=== PATIENT | female | born 1955 | race Caucasian/White ===

== ENCOUNTER 2020-02-01 23:52 | Emergency (ER) | payer OTHER, SELFPAY ==
--- NOTE | ~2020-02-01 | XR_ITS ---
EXAMINATION: XR wrist LT min 3V DATE: 02/02/2020 00:21 INDICATION: Left wrist pain, initial encounter TECHNIQUE: Posteroanterior, ulnar deviation, oblique, and lateral views of the left wrist were obtain ed. COMPARISON: None available FINDINGS: There is cortical irregularity and buckling of the dorsal lateral cortex of the distal radi us. Alignment at the wrist is normal. There is mild osteoarthritis of the triscaphe and first carpome tacarpal joints. Wrist soft tissue swelling is noted. IMPRESSION: 1. Acute fracture of the left distal radius with surrounding soft tissue swelling. Reviewed, dictated and finalized at location A. IMPRESSION: 1. Acute fracture of the left distal radius with surrounding soft tissue yamileth ewing.
[2020-02-01 23:56] VITALS: BP 153/85; PULSE 81; RESP 16; TEMP 36.8; O2SAT 100
--- NOTE | 2020-02-01 23:57 | ED.FALL ---
HPI - Fall General Chief Complaint: Fall Stated Complaint: Left arm injury Time Seen by Provider: 02/01/20 23:56 Source: patient and family Mode of arrival: ambulatory Limitations: no limitations History of Present Illness HPI Narrative: 64-year-old woman comes in today complaining of pain and swelling in her left wrist that started approximately 7:00 a.m. this evening when she fell backwards on her outstretched left hand. She states that she also landed on her backside and she has some mild tenderness there but it is mild in getting better. She states she has difficulty holding things in her left hand but no numbness or tingling or weakness. She denies prior wrist injuries or fractures. She took some ibuprofen prior to arrival. She denies head injury. complaint: fall Onset (ago): hour(s) (4) Fall from: standing Fall witnessed: yes, by family Place fall occurred: home Loss of consciousness: none Prolonged down time: no Symptoms prior to fall: none Context: tripped/slipped Location of injury - extremities: Left: forearm Severity: moderate Quality: sharp Associated symptoms (after fall): denies Related Data Home Medications Medication Instructions Recorded Confirmed potassium chloride 10 meq PO DAILY 02/02/20 02/02/20 pravastatin 40 mg PO DAILY 02/02/20 02/02/20 Allergies Allergy/AdvReac Type Severity Reaction Status Date / Time levofloxacin Allergy Mild TINGLING Verified 02/02/20 00:04 SENSATION MOUTH AND FACE Review of Systems Constitutional: Constitutional: Denies chills, Denies fever(s) and Denies weakness ENT: Denies vertigo and Denies epistaxis Cardiovascular: Cardiovascular: Denies chest pain and Denies radiating jaw, neck or arm pain Respiratory: Respiratory: Denies cough, Denies dyspnea and Denies wheezing Musculoskeletal: Musculoskeletal: Reports as per HPI, Reports back pain, Reports arthralgias and Reports joint swelling Integumentary/Breasts: Skin/Breast: Denies pruritus, Denies erythema and Denies rash Neurologic: Denies dizziness and Denies syncope Hematologic/Lymphatic: Hematologic/Lymphatic: Denies easy bleeding and Denies easy bruising Allergic/Immunologic: Allergic/Immunologic: Denies lip swelling and Denies wheezing PMFSH Past Medical History Medical History Dyslipidemia Surgical History Surgical History S/P AVR Status post hysterectomy Social History Social History Smoking status: Current some day smoker Tobacco type: e-cigarettes/vaping Alcohol intake: never Substance use: never Living arrangements: with family Exam Const: General: healthy appearing and alert Orientation/consciousness: patient oriented x3 Limitations: no limitations Other: mild acute distress HENMT: Face and sinus: normal facial exam Eyes: Conjunctivae: conjunctivae normal Pupils: Equal, round and reactive pupils present EOM: EOMs intact bilaterally Resp: Effort & Inspection: normal respiratory effort and not labored Auscultation: clear to auscultation bilaterally, no rales, no rhonchi and no wheezes Cardio: Rate: regular rate Rhythm: regular rhythm Heart sounds: no murmurs Skin: General skin exam: normal color, no jaundice and no pallor Rashes: no rashes Neuro: General: patient oriented x3, moves all extremities, no focal motor deficits and CN's II-XI intact bilaterally Speech: normal speech Gait exam (Neuro): Normal gait present Extrem: General: normal to inspection and no clubbing, cyanosis or edema Other: Tenderness of palpation and swelling over the left distal radius where there is a wrist joint effusion. There is no tenderness over the length of the ulna, the remaining radius, elbow, humerus or shoulder. distal neurovascular exam is intact. Psych: Appearance: well kempt Mental St
--- NOTE | 2020-02-02 00:09 | PC.NURSE ---
Ice Pack placed on left wrist, patient tolerated well.
--- NOTE | 2020-02-02 00:55 | PC.NURSE ---
AT 12:55 AM ROSAMARIA ARCE AND SANDRA HAGAN APPLIED AN OCL TO PT. LEFT ARM UP TO THE ELBOW USING 11 INCHES OF OCL WITH PADDING AND NIKOLAY BANDAGE. A SLING WAS ALSO APPLIED TO PATIENT AND SHE WAS INSTRUCTED HOW TO USE IT AT HOME. PT. HAS NO QUESTIONS OR COMPLAINTS AT THIS TIME.
== END 2020-02-02 01:15 | disposition home or self-care (01) ==
PROVIDERS: Emergency Provider Emergency Medicine; PCP Internal Medicine
DX: S52.572A Other intraarticular fracture of lower end of left radius, initial encounter for closed fracture (principal); W19.XXXA Unspecified fall, initial encounter
CPT/HCPCS: 29125; 73110; 99282; 99284; A4565; A9270

== ENCOUNTER 2020-03-14 14:35 | Outpatient (CLI) | payer OTHER, SELFPAY ==
--- NOTE | ~2020-03-14 | XR_ITS ---
EXAMINATION: XR wrist LT min 3V DATE: 03/14/2020 15:05 INDICATION: Distal left radius fracture. Follow-up. TECHNIQUE: 4 views of left wrist were obtained. COMPARISON: Left wrist radiographs 02/02/2020 FINDINGS: There is a transverse fracture of distal radius with extension of the fracture line to the distal radioulnar joint. The distal fracture fragment demonstrates impaction and dorsal angulation. T here is 16 degrees dorsal tilt of the distal articular surface. There is sclerosis about the fracture line, consistent with healing. The ulnar styloid is intact. There is mild osteoarthritis of first ca rpometacarpal joint and first metacarpophalangeal joint. IMPRESSION: 1. Healing transverse fracture of distal radius. 2. Mild polyarticular osteoarthritis. Reviewed, dictated and finalized at location A.
== END 2020-03-14 14:36 | disposition home or self-care (01) ==
PROVIDERS: PCP Internal Medicine; Visit Provider Internal Medicine
DX: S52.502D Unspecified fracture of the lower end of left radius, subsequent encounter for closed fracture with routine healing (principal)
CPT/HCPCS: 73110

== ENCOUNTER 2020-05-09 16:49 | Outpatient (RCR) | payer OTHER, SELFPAY ==
--- NOTE | 2020-05-10 08:00 | OTOPEVAL ---
Thank you for referring Reba Holt to [facility].? The patient is scheduled to be seen for therapy? ____x/week for ___ weeks. Please review, sign, date and return this plan of care KOJO. I agree with and certify that the following plan of care is medically necessary. 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 Respiratory History Hx Respiratory Disorders No Significant History Gastrointestinal History Hx Gastrointestinal Disorders No Significant History Genitourinary History Hx Genitourinary Disorders No Significant History Musculoskeletal History Hx Musculoskeletal Disorders No Significant History Hematological History Hx Hematological Disorders No Significant History Endocrine History Hx Endocrine Disorders No Significant History HEENT History Hx HEENT Disorders No Significant History Integumentary History Hx Skin Disorders No Significant History Reproductive History Hx Reproductive Disorders No Significant History Psychosocial History Hx Psychiatric Disorders No Significant History Pain History History of Any Previous or Ongoing No Significant History Instance of Pain Anesthesia History Hx Anesthesia Reactions No Significant History Evaluation Information Problem Diagnosis decreased strength, decreased ROM Onset 02/01/20 Cause L distal radius fracture, rupture of extensor tendons of L hand/wrist Subjective Information Patient reports that she Query Text:As Reported By Patient/ fractured her L wrist on and then had a tendon transfer surgery on 03/24/20. Tendon transfer of the EIP to the EPL. Patient was in a cast followed by a splint and was released from all orthosis as of last week. Patient reports that she is slowly starting to use her L hand.
--- NOTE | 2020-06-01 17:59 | OTOPEVAL ---
Thank you for referring Reba Holt to [facility].? The patient is scheduled to be seen for therapy? ____x/week for ___ weeks. Please review, sign, date and return this plan of care KOJO. I agree with and certify that the following plan of care is medically necessary. 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 Respiratory History Hx Respiratory Disorders No Significant History Gastrointestinal History Hx Gastrointestinal Disorders No Significant History Genitourinary History Hx Genitourinary Disorders No Significant History Musculoskeletal History Hx Musculoskeletal Disorders No Significant History Hematological History Hx Hematological Disorders No Significant History Endocrine History Hx Endocrine Disorders No Significant History HEENT History Hx HEENT Disorders No Significant History Integumentary History Hx Skin Disorders No Significant History Reproductive History Hx Reproductive Disorders No Significant History Psychosocial History Hx Psychiatric Disorders No Significant History Pain History History of Any Previous or Ongoing No Significant History Instance of Pain Anesthesia History Hx Anesthesia Reactions No Significant History Evaluation Information Problem Subjective Information Patient reports that she Query Text:As Reported By Patient/ continues to use her L thumb Family and hand more. Patient states that her L wrist is sore sometimes when she uses it. Patient is able to grasp various objects, tie her shoes , buttons, etc. Patient reports that she is now able to do everything that she needs to do and does not have to ask for help from her . Patient does mention that it is difficult to grasp and sweep the floor. Pain Assessment Timing of Pain Assessment Timing of Pain Assessment Re-assessment Se
--- NOTE | 2020-06-01 18:02 | OTOPEVAL ---
Thank you for referring Reba Holt to [facility].? The patient is scheduled to be seen for therapy? ____x/week for ___ weeks. Please review, sign, date and return this plan of care KOJO. I agree with and certify that the following plan of care is medically necessary. 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 heart defect Respiratory History Hx Respiratory Disorders No Significant History Gastrointestinal History Hx Gastrointestinal Disorders No Significant History Genitourinary History Hx Genitourinary Disorders No Significant History Musculoskeletal History Hx Musculoskeletal Disorders No Significant History Hematological History Hx Hematological Disorders No Significant History Endocrine History Hx Endocrine Disorders No Significant History HEENT History Hx HEENT Disorders No Significant History Integumentary History Hx Skin Disorders No Significant History Reproductive History Hx Reproductive Disorders No Significant History Psychosocial History Hx Psychiatric Disorders No Significant History Pain History History of Any Previous or Ongoing No Significant History Instance of Pain Anesthesia History Hx Anesthesia Reactions No Significant History Evaluation Information Problem Subjective Information Patient reports that she Query Text:As Reported By Patient/ continues to use her L thumb Family and hand more. Patient states that her L wrist is sore sometimes when she uses it. Patient is able to grasp various objects, tie her shoes , buttons, etc. Patient reports that she is now able to do everything that she needs to do and does not have to ask for help from her . Patient does mention that it is difficult to grasp and sweep the floor. Pain Assessment Timing of Pain Assessment Timing of Pain Assessment Re-assessment Se
--- NOTE | 2020-06-06 15:30 | PCOTNOTE ---
Patient is discharged from skilled OT services as patient's doctor released her from therapy. MS
== END 2020-06-01 16:43 | disposition home or self-care (01) ==
LOC: CHSOT 16:49
DX: M66.242 Spontaneous rupture of extensor tendons, left hand (principal); M66.232 Spontaneous rupture of extensor tendons, left forearm
CPT/HCPCS: 97035; 97110; 97140; 97165; 97530

== ENCOUNTER 2021-03-30 12:11 | Outpatient (CLI) | payer BC, SELFPAY | END 2021-03-30 12:12 | disposition home or self-care (01) | LOC: CHSIMG 12:14 | PROVIDERS: PCP Internal Medicine; Visit Provider Specialist | DX: Z95.2 Presence of prosthetic heart valve (principal); I25.10 Atherosclerotic heart disease of native coronary artery without angina pectoris; I07.1 Rheumatic tricuspid insufficiency | CPT/HCPCS: 93306 ==

== ENCOUNTER 2022-05-23 08:57 | Outpatient (CLI) | payer MEDICARE, SELFPAY ==
--- NOTE | ~2022-05-23 | CT_ITS ---
EXAMINATION: CT lung screening DATE: 05/23/2022 09:56 INDICATION: Personal history of nicotine dependence TECHNIQUE: Computed tomography (CT) of the chest was performed without intravenous contrast. The dose -length product was 64.16 mGy-cm. Automated exposure control and iterative reconstruction technique w ere employed. COMPARISON: CT dated 09/21/2016 FINDINGS: No thoracic lymphadenopathy. Heart size normal. No significant pleural or pericardial effus ion. There is atherosclerosis of the aorta and coronary arteries. There is severe emphysema. No endob ronchial lesions. The upper abdomen is unremarkable. There is apical pleural thickening/scarring. No endobronchial lesions. No pneumothorax. Status post median sternotomy. 2 mm calcified granuloma right upper lobe. 3 mm right middle lobe nodule, image 69. Stable 4 mm left lower lobe nodule, image 79. T here are a few additional scattered 1-2 mm nodules in both lungs. There is a 3.5 mm nodule in the rig ht middle lobe, not definitely seen on prior study. No focal lytic or blastic lesions. Mild thoracic spondylosis. IMPRESSION: 1. Lung-RADS category 2: Benign appearance or behavior. Continue annual screening with noncontrast lo w-dose chest CT in 12 months. Reviewed, dictated and finalized at location A. ND CREWMAN IMPRESSION: 1. Lung-RADS category 2: Benign appearance or behavior. Continue annual screeni ng with noncontrast low-dose chest CT in 12 months.
--- NOTE | ~2022-05-23 | DEXA_ITS ---
Bone Density Report Name: SAHRA MCDONALD Age: 66 Sex: Female Ethnicity: White Date of : 1955 Indication: postmenopausal; screening for osteoporosis; parental hip fracture; height loss; history of glucocorticoids; hysterectomy; Referring Provider: Aldair Cash Study: Bone densitometry was performed. Exam Date: May 23, 2022 Accession number: [id number] Bone Density: Region BMD T-score Z-score Classification AP Spine(L1-L4) 0.799 -2.3 -0.5 Osteopenia Femoral Neck (Left) 0.501 -3.1 -1.6 Osteoporosis Total Hip (Left) 0.638 -2.5 -1.2 Osteoporosis Femoral Neck (Right) 0.471 -3.4 -1.9 Osteoporosis Total Hip (Right) 0.567 -3.1 -1.8 Osteoporosis Femoral Neck Mean 0.486 -3.3 -1.7 Osteoporosis Total Hip Mean 0.602 -2.8 -1.5 Osteoporosis World Health Organization criteria for BMD impression classify patients as: Normal (T-score at or above -1.0), Osteopenia (T-score between -1.0 and -2.5), or Osteoporosis (T-score at or below -2.5). 10-year Fracture Risk: FRAX not reported because: Some T-score for Spine Total or Hip Total or Femoral Neck at or below -2.5 Treated for osteoporosis Clinical Information Provided by Patient: Parent has had a hip fracture Has taken Glucocorticoids Is being treated for osteoporosis Has used the following medications: Prolia (i.e. denosumab), Vitamin D, Calcium Has the following medical conditions: Hysterectomy Patient maximum height was 64 Menopause Age: 41 No regular weight bearing exercise Drinks caffeinated beverages Onset of menses at age 13 Number of children 3 Impression: The patient has osteoporosis, based on the Right Femoral Neck T-score. The patient has risk factors, including: parental hip fracture, history of glucocorticoid therapy. Discussion: It is important to ask patients whether they are taking their medications and to encourage continued and appropriate compliance with their osteoporosis therapies to reduce fracture risk. It is also important to review their risk factors and encourage appropriate calcium and vitamin D intakes, exercise, fall prevention and other lifestyle measures. Follow-Up: Consider a repeat BMD and Vertebral Fracture Assessment (VFA) exam in 2 years or sooner if medically necessary, to reassess this patient's status. Reported by: Dr. Karri Tolliver on 05/23/2022 9:45:00 AM. Reviewed, dictated and finalized at location [facility]
--- NOTE | ~2022-05-23 | MM_ITS ---
EXAMINATION: MM screening jamie BI w vesta HISTORY: Screening mammogram TECHNIQUE: Craniocaudal and mediolateral oblique 3-D tomosynthesis images were obtained and synthetic 2-D images were generated. CAD analysis was submitted and interpreted. COMPARISON: 06/24 2019, 12/20/2016 bilateral screening mammogram examinations BREAST PARENCHYMAL COMPOSITION: The breasts are almost entirely fatty. FINDINGS: Stable approximately 10 x 7 mm opacity is noted in the upper outer left breast at mid depth , with a nearby biopsy marker; history of prior benign left breast biopsy. There is no evidence of santamaria spicious mass, calcification, or architectural distortion to suggest malignancy in either breast. The re has been no suspicious interval change. IMPRESSION: 1. No mammographic evidence of malignancy. 2. Recommend routine screening mammography in one year. BI-RADS Category 2: Benign finding(s). Reviewed, dictated and finalized at location A. ING PROCESS TECHNICIAN
== END 2022-05-23 08:58 | disposition home or self-care (01) ==
PROVIDERS: PCP Internal Medicine; Visit Provider Internal Medicine
DX: Z12.2 Encounter for screening for malignant neoplasm of respiratory organs (principal); Z87.891 Personal history of nicotine dependence; M81.0 Age-related osteoporosis without current pathological fracture; Z12.31 Encounter for screening mammogram for malignant neoplasm of breast
CPT/HCPCS: 71271; 77063; 77067; 77080

== ENCOUNTER 2022-08-10 01:09 | Day surgery (SDC) | payer MEDICARE, SELFPAY ==
[2022-07-27 13:01] VITALS: BMI 24.0
[2022-08-10 08:10] VITALS: BP 147/93; PULSE 77; RESP 16; TEMP 36.3; O2SAT 99
[2022-08-10] MEDS: LACTATED RINGERS 1,000 ML 150 ML IV CONT (08:13)
[2022-08-10] MEDS: GENTAMICIN 80MG/SOD CHL 50 ML 80 MG/50 ML BAG 100 MG IVPB (08:17)
--- NOTE | 2022-08-10 08:36 | WPDANESEPPF ---
Anes - Initial Pre Proc Eval Procedure: Operation Date: 08/10/22 08:30 Proposed Procedures p Colonoscopy - Shahzad Machuca MD Date/Time: 08/10/22 08:36 Surgeon: Shahzad Machuca MD Pre Op Diagnosis: positive cologuard Patient Data Age: 66 Gender: F Height: 1.6 m Weight: 59 kg Last Vital Signs Temp 36.3 C L 08/10/22 08:10 Pulse 77 08/10/22 08:10 Resp 16 08/10/22 08:10 BP 147/93 H 08/10/22 08:10 Pulse Ox 99 08/10/22 08:10 O2 Del Method Room Air 08/10/22 08:10 Allergies Allergy/AdvReac Type Severity Reaction Status Date / Time levofloxacin Allergy Mild TINGLING Verified 08/10/22 08:09 SENSATION MOUTH AND FACE Home Medications Medication Instructions Recorded Confirmed Type potassium chloride 10 mEq 10 meq PO DAILY 02/02/20 08/10/22 History tablet,extended release ascorbate calcium (vitamin C) 500 500 mg PO DAILY 02/11/20 08/10/22 History mg tablet cyanocobalamin (vitamin B-12) 500 500 mcg PO DAILY 02/11/20 08/10/22 History mcg tablet (Vitamin B-12) aspirin 81 mg tablet 81 mg PO DAILY 07/27/22 08/10/22 History atorvastatin 20 mg tablet 20 mg PO DAILY 07/27/22 08/10/22 History Patient hx anesthesia problems: none Family hx anesthesia problems: none Results Review: All pre-operative results and documents have been reviewed as part of the pre-operative evaluation. [facility] Past Medical History Medical History Dyslipidemia Surgical History Surgical History S/P AVR Status post hysterectomy Social History Social History Smoking packs per day: 1 Smoking cigarettes per day: 20.0 Years smoked: 40 Smoking pack-years: 40.00 Smoking status: Former smoker Tobacco type: cigarettes and e-cigarettes/vaping Additional smoking assessment comments: currently vapes occasionally Alcohol intake: never Substance use: never Substance use type: does not use Living arrangements: with family Spiritual care concerns: No Anes - Eval Final PreProcedure Day of Procedure 08/10/22 08:36 Patient weight: normal Heart: regular rate and rhythm Lungs: decreased breath sounds Airway: Mallampati scale class II Neurological: alert and oriented Last oral intake: >/= 8 hours ASA classification: III Emergent: no Anesthetic plan: proceed Anesthesia type and monitoring: general GIVS and standard monitoring Results Review: All pre-operative results and documents have been reviewed as part of the pre-operative evaluation. Informed Consent: The patient's anesthetic plan and its attendant risks and benefits were discussed with the patient/family/POA. Questions were solicited and answers provided to the satisfaction of the patient/family/POA.
[2022-08-10] MEDS: AMPICILLIN 2 GM/NS 100 ML 2 GM/100 ML BAG IVPB (08:44)
--- NOTE | 2022-08-10 08:52 | PM.HPGS ---
History of Present Illness History of Present Illness Consent: Risks, benefits, and alternatives have been discussed and questions answered. Patient agrees to proceed with procedure. Chief complaint: positive cologuard Narrative: Reba Holt is a 66 year old female Presents for screening colonoscopy. Patient's current weight appetite and bowel movements are normal. Patient denies abdominal pain. She does have internal hemorrhoids and occasionally notices bright red blood per rectum with wiping. Her bowel habits have been normal. Previous colonoscopy 10 years ago was unremarkable. Patient recently had Cologuard test found to be positive prompting her to follow up today for colonoscopy. Review of Systems Review of Systems: Review of systems is noncontributory. [facility] Past Medical History Medical History (Updated 08/10/22 @ 08:53 by Shahzad Machuca MD) Dyslipidemia Surgical History Surgical History S/P AVR Status post hysterectomy Social History Social History Smoking packs per day: 1 Smoking cigarettes per day: 20.0 Years smoked: 40 Smoking pack-years: 40.00 Smoking status: Former smoker Tobacco type: cigarettes and e-cigarettes/vaping Additional smoking assessment comments: currently vapes occasionally Alcohol intake: never Substance use: never Substance use type: does not use Living arrangements: with family Spiritual care concerns: No Meds Home Medications and Allergies Home Medications Medication Instructions Recorded Confirmed Type potassium chloride 10 mEq 10 meq PO DAILY 02/02/20 08/10/22 History tablet,extended release ascorbate calcium (vitamin C) 500 500 mg PO DAILY 02/11/20 08/10/22 History mg tablet cyanocobalamin (vitamin B-12) 500 500 mcg PO DAILY 02/11/20 08/10/22 History mcg tablet (Vitamin B-12) aspirin 81 mg tablet 81 mg PO DAILY 07/27/22 08/10/22 History atorvastatin 20 mg tablet 20 mg PO DAILY 07/27/22 08/10/22 History Allergies Allergy/AdvReac Type Severity Reaction Status Date / Time levofloxacin Allergy Mild TINGLING Verified 08/10/22 08:09 SENSATION MOUTH AND FACE Vital Signs Vital Signs - 24 hr 08/10/22 08:10 Temperature 97.4 F L Pulse Rate 77 Respiratory Rate 16 Blood Pressure 147/93 H Pulse Oximetry 99 Oxygen Delivery Room Air Exam Narrative: Physical exam reveals patient to be alert. Vital signs stable. HEENT exam is unremarkable. Patient is anicteric. Lungs are clear to auscultation and percussion. Heart is without murmur or extra sounds. Abdomen bowel sounds are present soft nontender with no organomegaly. Digital external rectal exam is normal. Assessment and Plan Assessment and plan (1) Positive colorectal cancer screening using Cologuard test: Code(s): R19.5 - Other fecal abnormalities Status: Acute Assessment and Plan: Patient had a Cologuard test that was positive. For this reason screening colonoscopy will be performed.
[2022-08-10 09:19] VITALS: BP 131/71; PULSE 85; RESP 22; O2SAT 100
[2022-08-10 09:29] VITALS: BP 133/77; PULSE 63; RESP 12; O2SAT 100
[2022-08-10 09:39] VITALS: BP 126/87; PULSE 64; RESP 15; O2SAT 100
== END 2022-08-10 09:48 | disposition home or self-care (01) ==
PROVIDERS: PCP Internal Medicine; Visit Provider Internal Medicine Gastroenterology
PROC: 0DJD8ZZ Inspection of Lower Intestinal Tract, Via Natural or Artificial Opening Endoscopic (ICD-10-PCS; CPT 45378; principal; 2022-08-10 08:30)
DX: R19.5 Other fecal abnormalities (principal); K64.8 Other hemorrhoids; E78.5 Hyperlipidemia, unspecified; Z79.82 Long term (current) use of aspirin; Z95.4 Presence of other heart-valve replacement; F17.290 Nicotine dependence, other tobacco product, uncomplicated
CPT/HCPCS: 45378; J0290; J1580; J2704; J7120

== ENCOUNTER 2023-10-08 16:13 | Outpatient (CLI) | payer MEDICARE, SELFPAY ==
[2023-10-08 16:29] LABS: Hematocrit 37.8 % (35.0-42.0); Hemoglobin 11.9 g/dL (11.7-13.8); Mean Corpuscular HGB Conc 31.5 g/dL (32-36); Mean Corpuscular Hemoglobin 27.1 pg (27.0-31.0); Mean Corpuscular Volume 86.1 fL (78.0-102.0); Mean Platelet Volume 9.4 fl (9.2-11.8); Platelet Count Result 378 K/mm3 (150-420); Red Blood Count 4.39 M/mm3 (4.20-5.40); Red Cell Distribution Width 14.3 % (11.6-14.4); White Blood Count 6.8 K/mm3 (4.8-10.8)
[2023-10-08 16:46] LABS: Alanine Aminotransferase 26 U/L (14-59); Albumin Level 3.6 g/dL (3.4-5.0); Alkaline Phosphatase 89 U/L (46-116); Anion Gap 11 mmol/L (4-12); Aspartate Amino Transferase 27 U/L (15-37); Bilirubin,Total 0.2 mg/dL (0.00-1.00); Blood Urea Nitrogen 8 mg/dL (7-18); Calcium 8.3 mg/dL (8.5-10.1); Carbon Dioxide 24 mmol/L (21-32); Chloride 103 mmol/L (98-108); Estimated Glomerular Filt Rate 54; Glucose 94 mg/dL (70-99); Osmolality Calculated 284 mOsm/kg (285-295); Potassium 3.7 mmol/L (3.5-5.1); Sodium 138 mmol/L (136-145); Total Protein 6.8 g/dL (6.4-8.2)
[2023-10-08 16:49] LABS: Lactic Acid Reflex 0.6 mmol/L (0.4-2.0)
[2023-10-08 16:57] LABS: Band Neutrophils Percent 2 % (0-6); Basophils Percent Manual 0 % (0-1); Eosinophils Percent Manual 0 % (1-6); Lymphocytes Absolute Manual 2.24 K/mm3 (1.1-4.5); Lymphocytes Percent Manual 33 % (18-44); Monocytes Absolute Manual 0.61 K/mm3 (0.1-0.90); Monocytes Percent Manual 9 % (3-9); Neutrophils Absolute Manual 3.94 K/mm3 (1.7-7.2); Neutrophils Percent Manual 56 % (46-73); Platelet Estimate Adequate (Adequate); Total Cells Counted 100
[2023-10-08 17:37] LABS: Erythrocyte Sedimentation Rate 32 mm/hr (0-20)
== END 2023-10-08 16:14 | disposition home or self-care (01) ==
PROVIDERS: PCP Internal Medicine; Visit Provider Internal Medicine
DX: R19.7 Diarrhea, unspecified (principal)
CPT/HCPCS: 36415; 80053; 83605; 85025; 85652

== ENCOUNTER 2024-05-04 07:46 | Outpatient (CLI) | payer MEDICARE, SELFPAY ==
--- NOTE | ~2024-05-04 | US_ITS ---
EXAMINATION: US carotid duplex BI DATE: 05/04/2024 08:25 INDICATION: Bilateral carotid bruits TECHNIQUE: Grayscale, color Doppler, and pulsed Doppler images of the cervical carotid arteries were obtained. The degree of vessel stenosis is placed in one of the following categories: normal, <50%, 5 0-69%, >=70% but less than near-occlusion, near-occlusion, or total occlusion. Note that percent sten osis relative to normal distal artery lumen diameter is indirectly measured from velocity measurement s as described by Rafa, et al. Radiology 2003; 229:340-346. COMPARISON: None. FINDINGS: RIGHT: The right common carotid artery (CCA) peak systolic velocity (PSV) is 83 cm/s. The right internal car otid artery (ICA) PSV is 88 cm/s. The right ICA end-diastolic velocity (EDV) is 31 cm/s. The right IC A/CCA PSV ratio is 1.1. Grayscale and color Doppler images yield an estimate of <50% diameter reducti on from plaque in the ICA. There is antegrade flow in the right vertebral artery. LEFT: The left CCA PSV is 90 cm/s. The left ICA PSV is 77 cm/s. The left ICA EDV is 34 cm/s. The left ICA/C CA PSV ratio is 0.9. Grayscale and color Doppler images yield an estimate of <50% diameter reduction from plaque in the ICA. There is antegrade flow in the left vertebral artery. IMPRESSION: 1. <50% stenosis in the right internal carotid artery. 2. <50% stenosis in the left internal carotid artery. Reviewed, dictated and finalized at location A. DENT RESPONSE LEAD
--- NOTE | ~2024-05-04 | CT_ITS ---
CT Scan of the Chest without Contrast: Clinical Indication: Lung cancer screening, nicotine dependence Technique: Contiguous sections were acquired throughout the chest without intravenous contrast. Dose reduction technique was used on this scan by utilizing automated exposure control and iterative recon struction technique. The dose-length product (DLP) was 57.54 mGy-cm. Findings: There is no evidence of any significant mediastinal, hilar or axillary lymphadenopathy. Evidence of p rior aortic valve replacement. There is no evidence of pleural or pericardial effusion. There is moderate to advanced emphysema. Probable focal atelectasis or scarring left lung base, new f rom prior exam. There are mild patchy groundglass opacities at the left lung base/lingula. Stable 4 m m left lower lobe pulmonary nodule (axial image 79). Images through the upper abdomen reveal no abnormalities. Impression: Lung RADS 2-S: Benign appearance. 12 month follow-up screening CT advised. Mild patchy ground glass opacities at the left lung base/lingular, most compatible with infectious/in flammatory process. Reviewed, dictated and finalized at location M. OLL TAX ANALYST Impression: Lung RADS 2-S: Benign appearance. 12 month follow-up screening CT advised. Mild patchy ground glass opacities at the left lung base/lingular, most compati ble with infectious/inflammatory process.
== END 2024-05-04 07:47 | disposition home or self-care (01) ==
LOC: CHSIMG 07:50
PROVIDERS: PCP Internal Medicine; Visit Provider Internal Medicine
DX: Z12.2 Encounter for screening for malignant neoplasm of respiratory organs (principal); Z87.890 Personal history of sex reassignment; I65.23 Occlusion and stenosis of bilateral carotid arteries; R91.8 Other nonspecific abnormal finding of lung field; Z87.891 Personal history of nicotine dependence
CPT/HCPCS: 71271; 93880

== ENCOUNTER 2024-05-20 15:52 | Outpatient (CLI) | payer MEDICARE, SELFPAY ==
--- NOTE | ~2024-05-20 | XR_ITS ---
CHEST RADIOGRAPH, PA AND LATERAL CLINICAL HISTORY: Cough . COMPARISON: Reference is made to a CT examination of the chest dated 05/04/2020 TECHNIQUE: PA and lateral views of the chest. FINDINGS Sternal wires and mediastinal clips are identified, the wires are midline and intact. Prosthetic valve in the aortic position. The remainder of the cardiomediastinal silhouette is otherwise unremarkable. Biapical scarring. The remainder of the lungs are clear. Visualized osseous structures and soft tissues are unremarkable. IMPRESSION: No focal infiltrate or effusion. Reviewed, dictated and finalized at location A. MACIST
== END 2024-05-20 15:53 | disposition home or self-care (01) ==
PROVIDERS: PCP Internal Medicine; Visit Provider Internal Medicine
DX: R05.9 Cough, unspecified (principal)
CPT/HCPCS: 71046

== ENCOUNTER 2024-05-22 16:24 | Outpatient (CLI) | payer MEDICARE, SELFPAY ==
--- NOTE | ~2024-05-22 | XR_ITS ---
EXAMINATION: XR chest 2V DATE: 05/22/2024 16:54 INDICATION: Dyspnea. TECHNIQUE: Frontal and lateral views of the chest were obtained. COMPARISON: Chest 2 views 05/20/2024 FINDINGS: There is mild scarring at right lung apex. No pleural effusion or pneumothorax. The heart s ize is normal. There are changes of aortic valve replacement. IMPRESSION: 1. Mild scarring at right lung apex. Reviewed, dictated and finalized at location A. N MALLOW DIPPER
[2024-05-22 16:55] LABS: Basophils Absolute Auto 0.04 K/mm3 (0.00-0.10); Basophils Percent Auto 0.2 % (0.0-1.0); Eosinophils Absolute Auto 0.02 K/mm3 (0.02-0.50); Eosinophils Percent Auto 0.1 % (1.0-6.0); Hematocrit 33.9 % (35.0-42.0); Hemoglobin 11.2 g/dL (11.7-13.8); Immature Granulocyte Absolute 0.16 K/mm3 (0.00-0.00); Immature Granulocyte Percent A 0.8 % (0.0-0.0); Lymphocytes Absolute Auto 2.23 K/mm3 (1.10-4.50); Lymphocytes Percent Auto 11.7 % (18.0-42.0); Mean Corpuscular Hemoglobin 29.6 pg (27.0-31.0); Mean Corpuscular Volume 89.7 fL (78.0-102.0); Mean Platelet Volume 9.8 fl (9.2-11.8); Monocytes Absolute Auto 1.44 K/mm3 (0.10-0.90); Monocytes Percent Auto 7.6 % (2.0-11.0); Neutrophils Absolute Auto 15.12 K/mm3 (1.70-7.20); Neutrophils Percent Auto 79.6 % (50.0-70.0); Platelet Count Result 526 K/mm3 (150-420); Red Blood Count 3.78 M/mm3 (4.20-5.40); Red Cell Distribution Width 13.8 % (11.6-14.4)
[2024-05-22 17:20] LABS: Alanine Aminotransferase 24 U/L (14-59); Albumin Level 2.9 g/dL (3.4-5.0); Alkaline Phosphatase 213 U/L (46-116); Anion Gap 14 mmol/L (4-12); Aspartate Amino Transferase 23 U/L (15-37); Bilirubin,Total 0.4 mg/dL (0.00-1.00); Blood Urea Nitrogen 12 mg/dL (7-18); Calcium 8.8 mg/dL (8.5-10.1); Carbon Dioxide 23 mmol/L (21-32); Chloride 92 mmol/L (98-108); Estimated Glomerular Filt Rate 42; Glucose 112 mg/dL (70-99); NT Pro B Type Natriuretic Pept 548 pg/mL (0-125); Osmolality Calculated 268 mOsm/kg (285-295); Potassium 3.3 mmol/L (3.5-5.1); Sodium 129 mmol/L (136-145); Total Protein 7.9 g/dL (6.4-8.2)
[2024-05-22 17:44] LABS: CRP 24.1 mg/dL (0.0-0.9)
[2024-05-22 18:05] LABS: Erythrocyte Sedimentation Rate 52 mm/hr (0-20)
[2024-05-23 09:59] LABS: Lactic Acid Reflex 1.4 mmol/L (0.4-2.0)
== END 2024-05-22 16:25 | disposition home or self-care (01) ==
PROVIDERS: PCP Internal Medicine; Visit Provider Nurse Practitioner Family
DX: R50.9 Fever, unspecified (principal); N30.90 Cystitis, unspecified without hematuria; J18.9 Pneumonia, unspecified organism; R41.82 Altered mental status, unspecified; R06.00 Dyspnea, unspecified; R91.8 Other nonspecific abnormal finding of lung field
CPT/HCPCS: 36415; 71046; 80053; 83605; 83880; 85025; 85652; 86140; 87040; 87077; 87086; 87088; 87186

== ENCOUNTER 2024-05-22 17:27 | Observation (INO) | payer MEDICARE, SELFPAY ==
[2024-05-22 17:28] VITALS: BP 127/82; PULSE 88; RESP 18; TEMP 36.6; O2SAT 100
--- NOTE | 2024-05-22 17:32 | ED_ITS ---
HPI - General Adult General Chief complaint: Urogenital-Female Stated complaint: abnormal labs Time Seen by Provider: 05/22/24 17:32 Source: patient and family Mode of arrival: ambulatory Limitations: no limitations History of Present Illness HPI narrative: 68-year-old white female was treated with pneumonia 2 weeks ago she had repeat chest x-ray 2 days ago on the which was negative she has had some dysuria and fever off and on for the last 8 days with a fever of 103 yesterday. Sent over from the primary care office. Lia Hartman nurse practitioner gave report to me per phone. The patient has history of emphysema pulmonary nodules aortic valve replacement hyperlipidemia smoker. She had a urine done today that showed dipstick positive for nitrite +3 leukocytes positive for leukocyte esterase blood [place] [id number]. Sed rate CRP lactic acid CMP were also done chest x-ray today was negative. Sent to emergency room for further evaluation and treatment. she has been sleeping a lot. Not taking anything for fever today. Has burning discomfort with urination off and on for the past 8 days. Denies any cough difficulty breathing pain elsewhere rash or itching swelling lumps or bumps dizziness or lightheadedness. She just feels tired and fatigued and been sleeping a lot. Her son thought her mental status was a little off. Denies any other complaints Related Data Home Medications Medication Instructions Recorded Confirmed potassium chloride 10 mEq 10 meq PO DAILY 02/02/20 05/22/24 tablet,extended release ascorbate calcium (vitamin C) 500 500 mg PO DAILY 02/11/20 05/22/24 mg tablet cyanocobalamin (vitamin B-12) 500 500 mcg PO DAILY 02/11/20 05/22/24 mcg tablet (Vitamin B-12) aspirin 81 mg tablet 81 mg PO DAILY 07/27/22 05/22/24 atorvastatin 20 mg tablet 20 mg PO DAILY 07/27/22 05/22/24 Allergies Allergy/AdvReac Type Severity Reaction Status Date / Time levofloxacin Allergy Mild TINGLING Verified 05/22/24 17:41 SENSATION MOUTH AND FACE Review of Systems Review of Systems: All systems reviewed & are unremarkable except as noted in HPI and below PMFSH Past Medical History Medical History Dyslipidemia Surgical History Surgical History S/P AVR Status post hysterectomy Social History Social History Smoking packs per day: 1 Smoking cigarettes per day: 20.0 Years smoked: 40 Smoking pack-years: 40.00 Smoking status: Former smoker Tobacco type: cigarettes and e-cigarettes/vaping Additional smoking assessment comments: currently vapes occasionally Alcohol intake: never Substance use: never Substance use type: does not use Living arrangements: with family Spiritual care concerns: No Exam Narrative: Supine blood pressure 122/68 with a pulse of 78 standing blood pressure 92/67 with a pulse of 100. Respirations 18 temp 36.6? centigrade O2 sat 100% room air White female patient with no apparent distress.? Head normocephalic, a traumatic.? Eyes conjunctiva pink sclera nonicteric.? Extraocular movements are intact.? Ears externally normal.? Oropharynx is clear with moist mucous membranes without exudates.? posterior pharynx is clear without exudates. Neck is supple nontender no lymphadenopathy.? Back is nontender.? Lungs are clear.? Heart is regular rate and rhythm without gallops or rubs.? She has up 3/6 systolic murmur at the aortic area right upper sternal border. Chest wall nontender. Abdomen is soft and nontender no hepatosplenomegaly or masses no CVA tenderness no abdominal bruits.? Extremities no cyanosis clubbing or edema.? Skin is warm and dry without rashes or lesions.? Neurological patient is alert and oriented x4.? Motor and sensory grossly intact.? Gait is normal. Course Vital Signs Vital signs: Vital Signs Temperature 36.6 C 05/22/24 17:28 Pulse Rate 88 05/22/24 17:28 Respiratory Rate 18 05/22/24 17:28 Blood Pressure 127/82 05/22/24 17:28 Pulse Oximetry 100 05/22/24 17:28 Oxygen Delivery Room Air 05/22/24 17:28 Temperature 36.6 C 05/22/24 17:28 Pulse Rate 100 05/22/24 18:39 Respiratory Rate 18 05/22/24 17:28 Blood Pressure 92/67 L 05/22/24 18:39 Pulse Oximetry 100 05/22/24 17:28 Oxygen Delivery Room Air 05/22/24 17:28 Medical Decision Making MDM Narrative Medical decision making narrative: ?Patient placed in room: room 2 with her and son ? History and physical was performed. chest x-ray today showed no active disease sodium was 129 it was 138 on October 02, chloride 92 potassium 3.3 BUN creatinine 12 and 1.27 bicarb 23 blood sugar 112 anion gap 14 Osmo 268, CRP 24.1 sed rate 52 proBNP 548 albumin 29 alkaline phosphatase 213 rest of CMP was normal. Her GFR was 42 and back in September it was 54. WBCs 19 H&H 11.2 and 33.9 with platelets 526. H&H really had changed either. urinalysis was consistent with a urinary tract infection Urine osmol: Send out Spot urine sodium:Pending at admission Orthostatics were positive Independent Historian: and son External Source Review: outpatient labs and chest x-ray reports from today Differential Dx includes but not limited to: UTI urosepsis pneumonia electr olyte imbalance hypovolemia Medications were Reviewed: home meds reviewed Medications given: normal saline bolus 500, Rocephin 1 g IV then patient will be started on D5 normal saline with 20 KCL at 1:25 a.m. per hour. Patient will be admitted observation. Her potassium would be increased from 10-20 mEq per day. She would get a.m. CBC CMP and hopefully be discharged from observation to be on cephalexin 500 3 times a day for 7 days for her urinary tract infection. Independently Interpreted by me: labs independently interpreted by me Shared decision Making: evaluation was discussed with patient family all questions were asked and answered they agreed with plan we would admit the patient observation summer child caregiver continue IV fluids and potassium recheck her electrolytes and Osmo in the morning, Rocephin IV then cephalexin 500 3 times a day for 7 days Social Situation Impacting Patients Care: Discussed with Dr. WING DIAGNOSIS: urinary tract infection acute, hypovolemic hyponatremia, hypokalemia, volume depletion DISPOSITION : admit to observation CONDITION AT DISCHARGE: stable Vital Signs Vital Signs: Vital Signs Temperature 36.6 C 05/22/24 17:28 Pulse Rate 88 05/22/24 17:28 Respiratory Rate 18 05/22/24 17:28 Blood Pressure 127/82 05/22/24 17:28 Pulse Oximetry 100 05/22/24 17:28 Oxygen Delivery Room Air 05/22/24 17:28 Temperature 36.6 C 05/22/24 17:28 Pulse Rate 100 05/22/24 18:39 Respiratory Rate 18 05/22/24 17:28 Blood Pressure 92/67 L 05/22/24 18:39 Pulse Oximetry 100 05/22/24 17:28 Oxygen Delivery Room Air 05/22/24 17:28 Lab Data Labs: Lab Results 05/22/24 Range/Units 18:36 Urine Osmolality Pending Ur Random Sodium Pending Discharge Plan Discharge Clinical Impression: Hypo-osmolar hyponatremia, Hypovolemia, Acute UTI Patient Disposition: Still a Patient Condition: Stable Time of Disposition: 18:39
[2024-05-22 18:38] VITALS: BP 122/68; PULSE 75
[2024-05-22 18:39] VITALS: BP 115/86; BP 92/67; PULSE 100; PULSE 89
[2024-05-22 19:37] LABS: Sodium Urine Random 17 mmol/L (20-110)
[2024-05-22] MEDS: KCL 20 MEQ/D5/0.9% SOD CHL 1,000 ML 125 ML IV CONT (19:40)
--- NOTE | 2024-05-22 19:53 | ADMGEN ---
This patient, Reba Holt, was admitted to 2nd Floor Room 205-1. Patient/family oriented to hospital policies and general routines including ID bracelet, bed and alarms, visiting hours, pain management, procedures, bathroom and other care routines, personal items, smoking policy, room service/diet, and visiting hours. Pt has glasses on, phone in bed Information on how to activate the Rapid Response Team has been discussed. Patient/Family are encouraged to report perceived risks to care and to ask questions if they do not understand what they are told or what they should do.
[2024-05-23] VITALS: BP 114/70; PULSE 69; RESP 16; TEMP 36.5; O2SAT 100
[2024-05-23 05:26] LABS: Hematocrit 28.3 % (35.0-42.0); Hemoglobin 9.3 g/dL (11.7-13.8); Mean Corpuscular HGB Conc 32.9 g/dL (32-36); Mean Corpuscular Hemoglobin 29.3 pg (27.0-31.0); Mean Corpuscular Volume 89.3 fL (78.0-102.0); Mean Platelet Volume 9.6 fl (9.2-11.8); Platelet Count Result 443 K/mm3 (150-420); Red Blood Count 3.17 M/mm3 (4.20-5.40); Red Cell Distribution Width 14.2 % (11.6-14.4); White Blood Count 12.3 K/mm3 (4.8-10.8)
[2024-05-23 05:57] LABS: Alanine Aminotransferase 23 U/L (14-59); Albumin Level 2.2 g/dL (3.4-5.0); Alkaline Phosphatase 152 U/L (46-116); Anion Gap 12 mmol/L (4-12); Aspartate Amino Transferase 18 U/L (15-37); Bilirubin,Total 0.2 mg/dL (0.00-1.00); Blood Urea Nitrogen 11 mg/dL (7-18); Calcium 8.3 mg/dL (8.5-10.1); Carbon Dioxide 23 mmol/L (21-32); Chloride 101 mmol/L (98-108); Estimated CRCL calculation 38 ml/min; Estimated Glomerular Filt Rate 53; Glucose 97 mg/dL (70-99); Osmolality Calculated 281 mOsm/kg (285-295); Potassium 3.7 mmol/L (3.5-5.1); Sodium 136 mmol/L (136-145); Total Protein 6.3 g/dL (6.4-8.2)
[2024-05-23] MEDS: ACETAMINOPHEN 500 MG TABLET 1000 MG PO (06:41)
[2024-05-23 08:00] VITALS: BP 104/58; PULSE 70; RESP 16; TEMP 35.6; O2SAT 98
[2024-05-23] MEDS: ASPIRIN 81 MG CHEWABLE TABLET PO (08:23)
[2024-05-23] MEDS: ATORVASTATIN 10 MG TABLET 20 MG PO (08:23)
[2024-05-23] MEDS: ASCORBIC ACID 500 MG TABLET PO (08:25)
[2024-05-23] MEDS: CYANOCOBALAMIN 500 MCG TABLET PO (08:25)
[2024-05-23] MEDS: POTASSIUM CHLORIDE 20 MEQ ER TABLET PO (08:25)
--- NOTE | 2024-05-23 09:21 | P.SS_ITS ---
Same Day Admit/Disch: HPI History of Present Illness Chief complaint: abnormal labs Narrative: Reba Holt is a 68 year old female who presented to the emergency department after she was requested to go from her primary care physician due to abnormal labs. Patient had reported she had had a fever off and on for the last 8 days and overall was not feeling well. she had recently been treated for pneumonia 2 weeks prior but did report some burning urination. labs transmitted from her primary care physician showed leukocytosis of 19, hyponatremic at 1:29 a.m., hypokalemic with 3.3, BETHANY of Cr 1.27, and reported UA that was nitrate and leukocytes positive with some bacteriuria. patient's primary care physician requested the patient go to the emergency department for further evaluation and IV antibiotic therapy with some concern for sepsis secondary to UTI. patient was admitted to the medical unit for treatment of urinary tract infection, hyponatremia, BETHANY and dehydration, patient received Rocephin IV x1, potassium replenishment of 40, and IV fluids. following day patient had no further complaints was afebrile through the night and leukocytosis had trended down to 12. patient had denied any CVA pain, chills, or difficulty urinating. hyponatremia and BETHANY had resolved with administration of IV fluids. patient reported overall feeling better and requesting to return home. Discharge patient on oral Keflex and will monitor cultures and sensitivities, current NGTD on blood cultures x2 understands may need a different antibiotic outpatient pending sensitivities. She was educated on the need to return for medical attention if symptoms return or worsen. Patient discharged to home with family PMFSH Past Medical History Medical History (Updated 05/23/24 @ 09:30 by Sharon Duron APRN) Dyslipidemia Surgical History Surgical History S/P AVR Status post hysterectomy Social History Social History Smoking packs per day: 1 Smoking cigarettes per day: 20.0 Years smoked: 40 Smoking pack-years: 40.00 Smoking status: Current every day smoker Tobacco type: e-cigarettes/vaping Second hand tobacco smoke exposure: Yes Additional smoking assessment comments: currently vapes occasionally Alcohol intake: never Substance use: never Substance use type: does not use Do You Feel Safe in your Home?: Yes Lack of Transportation: No Lack of Food: Never True Current Housing: I Have Housing Concerned About Future Housing: No Difficulty Paying Gas/Electric Bills: No Difficulty Paying for Meds: No Currently Unemployed: No Education: High School Diploma/GED Difficulty w/ Childcare or Family Care: No Living arrangements: with family Spiritual care concerns: No Same Day Admit/Disch: Med Pre-admit Medications Home Medications Medication Instructions Recorded Confirmed Type potassium chloride 10 mEq 10 meq PO DAILY 02/02/20 05/22/24 History tablet,extended release ascorbate calcium (vitamin C) 500 500 mg PO DAILY 02/11/20 05/22/24 History mg tablet cyanocobalamin (vitamin B-12) 500 500 mcg PO DAILY 02/11/20 05/22/24 History mcg tablet (Vitamin B-12) aspirin 81 mg tablet 81 mg PO DAILY 07/27/22 05/22/24 History atorvastatin 20 mg tablet 20 mg PO DAILY 07/27/22 05/22/24 History cephalexin 500 mg capsule 500 mg PO Q8H #21 caps 05/23/24 Rx Review of Systems Review of Systems All systems reviewed & are unremarkable except as noted in HPI and below Exam Narrative: * GENERAL: Alert and oriented x 3Pleasant female. No acute distress. * EYES: EOMI. No scleral icterus. PERRLA. * HEENT: Moist mucous membranes. * LUNGS: Clear to auscultation bilaterally. No accessory muscle use. * CARDIOVASCULAR: Regular rate and rhythm. No murmur. No JVD. S1-S2 * ABDOMEN: Soft, non tenderness and non-distended. No palpable masses. no CVA tenderness * EXTREMITIES: No edema. Non-tender * SKIN: No rashes or lesions. Skin warm, dry. * NEUROLOGIC: No focal neurological deficits. CN II-XII grossly intact * PSYCHIATRIC: Appropriate mood and affect. Good judgement and insight. DS: Data Data Completed and Pending Labs on day of discharge: Labs from last 24 hours 05/23/24 05/22/24 05:02 18:36 WBC 12.3 H RBC 3.17 L Hgb 9.3 L Hct 28.3 L MCV 89.3 MCH 29.3 MCHC 32.9 RDW 14.2 Plt Count 443 H MPV 9.6 Sodium 136 Potassium 3.7 Chloride 101 Carbon Dioxide 23 Anion Gap 12 BUN 11 Creatinine 1.04 H Estim Creat Clear Calc 38 Estimated GFR 53 L Glucose 97 Calculated Osmolality 281 L Calcium 8.3 L Total Bilirubin 0.2 AST 18 ALT 23 Alkaline Phosphatase 152 H Total Protein 6.3 L Albumin 2.2 L Urine Osmolality Pending Ur Random Sodium 17 L DS: Summary Hospital Course Reason for hospitalization: urinary tract infection, hyponatremia, hypokalemia, BETHANY Status at Discharge Functional status at discharge: independent ambulation Overall status at discharge: patient is back to baseline Time Spent with Patient Time attestation: Total time spent providing and/or coordinating discharge services: Time spent: Greater than 30 minutes DS: Admitting Diagnosis Discharge Date 05/23/2024 Admitting Diagnosis UTI/ hyponatremia/ hypokalemia/ BETHANY DS: Discharge Diagnosis Discharge Diagnosis (1) Hypo-osmolar hyponatremia: Code(s): E87.1 - Hypo-osmolality and hyponatremia Status: Acute (2) Hypovolemia: Code(s): E86.1 - Hypovolemia Status: Acute (3) Acute UTI: Code(s): N39.0 - Urinary tract infection, site not specified Status: Acute (4) Hypokalemia: Code(s): E87.6 - Hypokalemia Status: Acute Plan Code status: Full code per patient DVT prophylaxis: NA Stress ulcer prophylaxis: NA PT/OT notes: Ambulatory Disposition: Discharged to home Discharge Plan Discharge Attending physician on discharge: Pillo Bar Discharging Clinician: Sharon Duron Anticipated Discharge Date/Time: 05/23/24 09:09 Patient Disposition: Home, Self-Care Activity: may shower, unlimited and as tolerated Diet: heart healthy Discharge Instructions: You are being discharged to home after evaluation and treatment for urinary tract infection, dehydration, and hyponatremia. I have prescribed an oral ant ibiotic please complete as prescribed I will continue to follow your urinary cultures and sensitivities if there needs to be in adjustment to the antibiotic therapy I will call you with a new prescription. if symptoms return or worsen such as fever, chills, difficulty urinating, palpitations, poor appetite, lower back pain, or pain with urination seek medical attention. I encourage good oral hydration I would follow up with primary care physician within 1-2 weeks post discharge. I have included information on your diagnosis for education and review How can you care for yourself at home? ? Keep track of any new symptoms or changes in your symptoms. ? Rest until you feel better. ? Be safe with medicines. Take your medicines exactly as prescribed. Call your doctor if you think you are having a problem with your medicine. ? Do not drive after taking a prescription pain medicine. ? Ensure to follow-up with primary care physician as indicated and provide updated medication list provided to you at discharge. When should you call for help? Call 911 anytime you think you may need emergency care. For example, call if: ? You passed out (lost consciousness). Call your doctor now or seek immediate medical care if: ? You have new symptoms like fever, difficulty breathing, Chest pain, vomiting, or rash. ? You have new or different pain. ? You are confused and are having trouble thinking clearly. ? Your symptoms are getting worse. Watch closely for changes in your health, and be sure to contact your doctor if: ? You do not get better as expected. Patient Instructions: Antibiotic Form, Dehydration (DC), Urinary Tract Infection in Women (DC), Hyponatremia (DC) Patient Language: Hungarian Stand Alone Forms: General Discharge Information Follow-up/Referrals: Aldair Cash MD [Primary Care Provider] - 2 weeks (Call Saturday for follow up) Discharge Medications: New cephalexin 500 mg capsule 500 mg PO Q8H Qty: 21 0RF Continued potassium chloride 10 mEq tablet extended release 10 meq PO DAILY ascorbate calcium (vitamin C) 500 mg tablet 500 mg PO DAILY cyanocobalamin (vitamin B-12) [Vitamin B-12] 500 mcg tablet 500 mcg PO DAILY aspirin 81 mg Tablet 81 mg PO DAILY atorvastatin 20 mg tablet 20 mg PO DAILY Date of admission: 05/22/24 18:48 Primary Care Provider: Aldair Cash Admitting Provider: Pillo Bar Attending physician on admission: Sharon Duron Condition: Stable Quality -Patient's previous records reviewed on admission -ER notes reviewed in detail on admission -discussed all findings and current treatment plan with patient/Family/POA -Consultations reviewed for recommendations -Patient's disposition for safe discharge discussed with caseworker Dictation performed by [employer] direct speech recognition software, therefore zyglo inspector variants and typographical errors may occur. Hospitalist MIPS Advance Care Plan I have confirmed that the patient's Advanced Care Plan is present, code status is documented, or surrogate decision maker is listed in patient medical record.: Yes Medication Reconciliation I have utilized all available resources to obtain, update and review the patients current medications (includes all prescriptions, OTC, herbals, cannabis, and nutritional supplements).: Yes The patient is not eligible for med reconciliation; the patient is in a emergent medical situation where delaying treatment would jeopardize the patients health.: No Heart Failure (Exclusion) Patient has history of Heart Transplant or Left Ventricular Assistive Device?: No IF YES, STOP HERE Heart Failure (Qualifier) Patient has current or prior documentation of LVEF less than or equal to 40%, or mod/servere depressed LVSF?: No IF NO, STOP HERE
--- NOTE | 2024-05-23 10:30 | PC.NURSE ---
IV site discontinued in anticipation of discharge. Discharge instructions given to patient and family. Patient and family voiced understanding. Personal items sent home with patient. Patient left unit in w/c, accompanied by patient's and nurse. Patient left hospital grounds in privately owned vehicle.
--- NOTE | 2024-05-25 09:49 | PC.NURSE ---
Discharge call back completed, feeling better, to see Dr Cash tomorrow, denies questions regarding dc instructions
[2024-05-25 15:53] LABS: Osmolality, Urine 77 mOsm/kg (50-1200)
== END 2024-05-23 10:30 | disposition home or self-care (01) ==
LOC: CHSED 18:39 → CHS2ND 18:53
PROVIDERS: Admitting Provider Internal Medicine; Emergency Provider Emergency Medicine; PCP Internal Medicine; Visit Provider Nurse Practitioner Family
DX: N39.0 Urinary tract infection, site not specified (principal); N17.9 Acute kidney failure, unspecified; E86.0 Dehydration; E87.1 Hypo-osmolality and hyponatremia; E86.1 Hypovolemia; E87.6 Hypokalemia; E86.9 Volume depletion, unspecified; E78.5 Hyperlipidemia, unspecified; J43.9 Emphysema, unspecified; F17.290 Nicotine dependence, other tobacco product, uncomplicated; Z79.82 Long term (current) use of aspirin; Z79.899 Other long term (current) drug therapy; Z90.710 Acquired absence of both cervix and uterus; Z95.2 Presence of prosthetic heart valve
CPT/HCPCS: 36415; 71046; 80053; 83605; 83880; 83935; 84300; 85025; 85027; 85652; 86140; 87040; 87086; 87186; 96365; 96366; 96367; 99285; A9270; G0378; J0696; J3480

== ENCOUNTER 2024-05-26 08:22 | Outpatient (CLI) | payer MEDICARE, SELFPAY ==
[2024-05-26 09:16] LABS: Basophils Absolute Auto 0.04 K/mm3 (0.00-0.10); Basophils Percent Auto 0.5 % (0.0-1.0); Eosinophils Absolute Auto 0.28 K/mm3 (0.02-0.50); Eosinophils Percent Auto 3.2 % (1.0-6.0); Hemoglobin 10.1 g/dL (11.7-13.8); Immature Granulocyte Absolute 0.06 K/mm3 (0.00-0.00); Immature Granulocyte Percent A 0.7 % (0.0-0.0); Lymphocytes Absolute Auto 3.34 K/mm3 (1.10-4.50); Lymphocytes Percent Auto 37.6 % (18.0-42.0); Mean Corpuscular HGB Conc 32.6 g/dL (32-36); Mean Corpuscular Hemoglobin 29.3 pg (27.0-31.0); Mean Corpuscular Volume 89.9 fL (78.0-102.0); Monocytes Absolute Auto 0.63 K/mm3 (0.10-0.90); Monocytes Percent Auto 7.1 % (2.0-11.0); Neutrophils Absolute Auto 4.53 K/mm3 (1.70-7.20); Neutrophils Percent Auto 50.9 % (50.0-70.0); Platelet Count Result 778 K/mm3 (150-420); Red Blood Count 3.45 M/mm3 (4.20-5.40); Red Cell Distribution Width 14.3 % (11.6-14.4); White Blood Count 8.9 K/mm3 (4.8-10.8)
[2024-05-26 09:46] LABS: Sodium Urine Random 52 mmol/L (20-110)
[2024-05-26 09:49] LABS: Lactic Acid Reflex 0.9 mmol/L (0.4-2.0)
[2024-05-26 09:55] LABS: Add Urine Microscopic? YES; Appearance Urine Clear (Clear); Bilirubin Urine Negative (Negative); Blood Urine Trace-intact (Negative); Color Urine Light Yellow (Yellow); Glucose Urine UA Negative (Negative); Ketones Urine Negative (Negative); Leukocyte Esterase Ur Trace LEU/UL (Negative); Nitrate Urine Negative (Negative); Protein Urine Negative (Negative); Urobilinogen Urine 0.2 mg/dL (0.2-1.0)
[2024-05-26 10:03] LABS: Alanine Aminotransferase 27 U/L (14-59); Albumin Level 2.7 g/dL (3.4-5.0); Alkaline Phosphatase 149 U/L (46-116); Anion Gap 8 mmol/L (4-12); Aspartate Amino Transferase 21 U/L (15-37); Bilirubin,Total 0.2 mg/dL (0.00-1.00); Blood Urea Nitrogen 8 mg/dL (7-18); CRP 5.5 mg/dL (0.0-0.9); Calcium 8.8 mg/dL (8.5-10.1); Carbon Dioxide 27 mmol/L (21-32); Chloride 106 mmol/L (98-108); Cholesterol 134 mg/dL (0-200); Estimated Glomerular Filt Rate 60; Glucose 90 mg/dL (70-99); HDL Direct 36 mg/dL (40-60); LDL Cholesterol Calculated 78 mg/dL (<130); NT Pro B Type Natriuretic Pept 446 pg/mL (0-125); Osmolality Calculated 290 mOsm/kg (285-295); Potassium 4.3 mmol/L (3.5-5.1); Sodium 141 mmol/L (136-145); Total Protein 6.5 g/dL (6.4-8.2); Triglycerides 98 mg/dL (0-150)
[2024-05-26 10:14] LABS: Erythrocyte Sedimentation Rate 54 mm/hr (0-20)
[2024-05-26 10:20] LABS: Bacteria Urine 1+ /hpf; RBC Urine 0-2 /hpf (0-2); Renal Epithelial Cells Urine Few /hpf; Squamous Epithelial Cell Urine Few /hpf (Few)
== END 2024-05-26 08:23 | disposition home or self-care (01) ==
PROVIDERS: PCP Internal Medicine; Visit Provider Internal Medicine
DX: E78.2 Mixed hyperlipidemia (principal); E53.8 Deficiency of other specified B group vitamins; R03.0 Elevated blood-pressure reading, without diagnosis of hypertension; R41.82 Altered mental status, unspecified; R06.9 Unspecified abnormalities of breathing
CPT/HCPCS: 36415; 80053; 80061; 81001; 83605; 83880; 84300; 85025; 85055; 85652; 86140; 87086

== ENCOUNTER 2024-06-17 08:19 | Outpatient (CLI) | payer MEDICARE, SELFPAY ==
--- NOTE | ~2024-06-17 | MM_ITS ---
EXAMINATION: MM screening [facility] BI w vesta HISTORY: Screening TECHNIQUE: Craniocaudal and mediolateral oblique 3-D tomosynthesis images were obtained and synthetic 2-D images were generated. CAD analysis was submitted and interpreted. COMPARISON: Comparison to multiple prior studies sequentially, with oldest reviewed study dated 06/01. BREAST PARENCHYMAL COMPOSITION: Not Dense. The breasts are almost entirely fatty. FINDINGS: Stable benign-appearing mass in the upper outer quadrant of the left breast. There is an ad jacent tissue marker. There is no evidence of suspicious mass, calcification, or architectural distor tion to suggest malignancy in either breast. There has been no suspicious interval change. IMPRESSION: 1. No mammographic evidence of malignancy. 2. Recommend routine screening mammography in one year. BI-RADS Category 2: Benign finding(s). Reviewed, dictated and finalized at location [] ECT DIRECTOR
--- NOTE | ~2024-06-17 | DEXA_ITS ---
Bone Density Report Name: SAHRA MCDONALD Age: 68 Sex: Female Ethnicity: White Date of : 1955 Indication: postmenopausal osteoporosis; asthma or emphysema; hysterectomy; Referring Provider: Aldair Cash Study: Bone densitometry was performed. Exam Date: June 17, 2024 Accession number: [id number] Bone Density: Region BMD T-score Z-score Classification AP Spine(L1-L4) 0.808 -2.2 -0.2 Osteopenia Femoral Neck (Left) 0.467 -3.4 -1.8 Osteoporosis Total Hip (Left) 0.582 -2.9 -1.6 Osteoporosis Femoral Neck (Right) 0.395 -4.1 -2.4 Osteoporosis Total Hip (Right) 0.565 -3.1 -1.7 Osteoporosis Femoral Neck Mean 0.431 -3.8 -2.1 Osteoporosis Total Hip Mean 0.574 -3.0 -1.7 Osteoporosis World Health Organization criteria for BMD impression classify patients as: Normal (T-score at or above -1.0), Osteopenia (T-score between -1.0 and -2.5), or Osteoporosis (T-score at or below -2.5). 10-year Fracture Risk: FRAX not reported because: Some T-score for Spine Total or Hip Total or Femoral Neck at or below -2.5 Previous Exams: Region Exam Age BMD T-score BMD Change BMD Change Date g/cm2 vs Baseline vs Previous AP Spine (L1-L4) 06/17/2024 68 0.808 -2.2 -0.039 (-4.6%) 0.009 (1.1%) 05/23/2022 66 0.799 -2.3 -0.048 (-5.6%) -0.083 (-9.4%) 06/19/2019 63 0.882 -1.5 0.035 (4.2%)* -0.029 (-3.2%) 03/06/2017 61 0.912 -1.2 0.065 (7.6%)* 0.047 (5.5%)* 05/12/2014 58 0.864 -1.7 0.017 (2.0%) -0.039 (-4.3%) 07/16/2011 55 0.903 -1.3 0.056 (6.6%)* 0.056 (6.6%)* 12/06/2008 52 0.847 -1.8 Total Hip(Left) 06/17/2024 68 0.582 -2.9 -0.009 (-1.5%) -0.056 (-8.7%) 05/23/2022 66 0.638 -2.5 0.047 (7.9%)# 0.060 (10.3%)# 06/19/2019 63 0.578 -3.0 -0.013 (-2.2%) 0.002 (0.4%) 03/06/2017 61 0.576 -3.0 -0.015 (-2.6%) 0.029 (5.4%)* 05/12/2014 58 0.547 -3.2 -0.044 (-7.5%) -0.074 (-11.9% 07/16/2011 55 0.621 -2.6 0.030 (5.0%)* 0.030 (5.0%)* 12/06/2008 52 0.591 -2.9 Total Hip(Right) 06/17/2024 68 0.565 -3.1 -0.030 (-5.0%) -0.001 (-0.2%) 05/23/2022 66 0.567 -3.1 -0.029 (-4.8%) 0.001 (0.2%)# 06/19/2019 63 0.565 -3.1 -0.030 (-5.0%) 0.005 (0.9%) 05/12/2014 58 0.560 -3.1 -0.035 (-5.9%) -0.071 (-11.2% 07/16/2011 55 0.631 -2.6 0.035 (6.0%)* 0.035 (6.0%)* 12/06/2008 52 0.595 -2.8 *Denotes significance at 95% confidence level, LSC for AP Spine = 0.022 g/cm2, LSC for Total Hip = 0.027 g/cm2 # Denotes dissimilar scan types or analysis methods Clinical Information Provided by Patient: Has used the following medications: Prolia (i.e. denosumab), Vitamin D, Calcium Has the following medical conditions: Asthma or Emphysema, Hysterectomy Patient maximum height was 64 Menopause Age: 41 No regular weight bearing exercise Drinks caffeinated beverages Onset of menses at age 12 Number of children 3 Impression: The patient has osteoporosis, based on the Right Femoral Neck T-score. The BMD for the Total Hip(Left) decreased, changing by -8.7% since the last DXA exam. Discussion: HIGH RISK OF FRACTURE. BONE DENSITY IS UNDESIRABLY LOW AT ONE OR MORE SKELETAL SITES, CONSISTENT WITH OSTEOPOROSIS. ALSO, BONE DENSITY IS LOWER THAN EXPECTED FOR AGE AND SEX AT ONE OR MORE SKELETAL SITES; RECOMMEND A DILIGENT SEARCH FOR SECONDARY CAUSES OF BONE LOSS. This patient's lowest T-score meets the World Health Organization's (WHO) criteria for osteoporosis at one or more sites (T-score -2.5 or below). In untreated patients, the risk of osteoporotic fracture increases approximately two-fold for each 1.0 SD decrease in T-score. Low bone density is not the only risk factor for fracture; also consider factors such as patient's age, frailty or poor health, risk of falling, risk of injury, previous osteoporotic fracture, family history of osteoporosis, cigarette smoking, low body weight, etc. Not everyone with low bone mineral density has osteoporosis; osteomalacia and other metabolic bone disorders should also be considered. Patients who have osteoporosis should be evaluated for specific diseases and conditions (secondary causes) that may cause or contribute to bone loss. The [place] Association of Clinical Endocrinologists (AACE) and National Osteoporosis Foundation (NOF) recommend pharmacologic intervention for all postmenopausal women whose T-score is in this range. Also, this patient's bone mineral density is below the range considered normal for healthy age-, sex-, and race-matched controls at least one site (Z-score -2.0 or below). This warrants careful evaluation for diseases and conditions that may contribute to accelerated bone loss. The patient should follow a healthful lifestyle (good nutrition with adequate calcium and vitamin D, and appropriate weight-bearing exercise). Follow-Up: Consider a repeat BMD and Vertebral Fracture Assessment (VFA) exam in 2 years or sooner if medically necessary, to reassess this patient's status. Reported by: MELISSA on 06/17/2024 8:50:00 AM. Reviewed, dictated and finalized at location A.
== END 2024-06-17 08:20 | disposition home or self-care (01) ==
LOC: CHSIMG 08:21
PROVIDERS: PCP Internal Medicine; Visit Provider Internal Medicine
DX: Z12.31 Encounter for screening mammogram for malignant neoplasm of breast (principal); M81.0 Age-related osteoporosis without current pathological fracture; M85.89 Other specified disorders of bone density and structure, multiple sites; Z13.820 Encounter for screening for osteoporosis
CPT/HCPCS: 77063; 77067; 77080

== ENCOUNTER 2025-03-16 09:54 | Outpatient (CLI) | payer MEDICARE, SELFPAY ==
[2025-03-16 10:35] VITALS: BP 128/70; PULSE 68; RESP 14; TEMP 36.6; O2SAT 98; BMI 20.3
[2025-03-16] MEDS: ZOLEDRONIC ACID 5 MG/100 ML 100 ML 400 MG IVPB (10:35)
[2025-03-16 11:00] VITALS: BP 123/70
--- NOTE | 2025-03-16 11:04 | PC.NURSE ---
Patient tolerated Reclast infusion well. SEE MAR/patient care notes.
--- OUTSIDE RECORDS SUMMARY | 2025-03-16 11:28 | XMS_ITS | Encounter Summary ---
Author Organization [facility] Address [address] [place] [address] Care Team Providers Care Header Setup Operator Name Role Phone Aldair Cash MD Primary Care Provider Alcides Yoder MD Unavailable Marco Urbina MD Unavailable Unavailable Aldair Cash MD Primary Care Provider [phone] Kinjal Clements APRN, SOFTWARE FIRMWARE ENGINEER-C Unavailable [phone] Shahzad Awan MD Unavailable Blake Wood MD Unavailable Encounter Details Date Type Department Care Team (Late st Contact Info) Description 10/16/[address] [facility] [address] [place] [address] Guerrero Mosher MD [address] [place] [address] Social History Tobacco Use Types Packs/Day Years Used Date Smoking Tobacco: Former Cigarettes Q uit: 2017 Smokeless Tobacco: Never Alcohol Use Standard Drinks/Week Comments No 0 (1 standard drink = 0.6 oz pur e alcohol) Comments Unknown Sex and Gender Information Value Date Recorded Sex Assigned at Female 07/27/2024 9:41 AM LOG TUMBLER Legal Sex Female 4:55 PM CDT Gender Identity Not on file Sexual Orientation Not on file Occupation Industry Job Start Date Job End Date Homemaker Not on file Not on file Not on file documented as of this encounter Plan of Treatment Upcoming Encounters Date Type Department Care Team (Late st Contact Info) Description 06/01/2025 1:30 PM LOG TUMBLER Office Visit [facility] [address] [place] [address] Kinjal Clements APRN, SOFTWARE FIRMWARE ENGINEER-C [address] [facility] [address] [address] documented as of this encounter Visit Diagnoses Not on filedocumented in this encounter Care Teams Header Setup Operator Relationship Specialty Start Date End Date Aldair Cash MD [address] [place] [address] PCP - General INTERNAL MEDICINE 01/22/17 10/29/19 Aldair Cash MD [address] [place] [address] PCP - General INTERNAL MEDICINE 10/30/19 Alcides Yoder MD [address] [place] [address] [place] Cardiac Sonographer CARDIOVASCULAR DISEASE 01/22/17 10/23/23 Marco Urbina MD [address] [place] [address] CARDIOVASCULAR DISEASE 08/26/17 12/04/23 Kinjal Clements APRN, SOFTWARE FIRMWARE ENGINEER-C [address] [facility] [address] [place] [address] NURSE PRACTITIONER 10/30/19 Shahzad Awan MD [address] [facility] [address] [address] [place] [address] ORTHOPAEDIC SURGERY 03/21/20 Blake Wood MD [address] [place] [id number] [place] [address] Consulting Physician INTERVENTIONAL CARDIOLOGY 05/25/24 documented as of this encounter
--- OUTSIDE RECORDS SUMMARY | 2025-03-16 11:28 | XMS_ITS | Encounter Summary ---
Author Organization [facility] Address [address] [place] [address] Care Team Providers Care Motor Lodge Clerk Name Role Phone Aldair Cash MD Primary Care Provider [phone] Alcides Yoder MD Unavailable Marco Urbina MD Unavailable Unavailable Aldair Cash MD Primary Care Provider [phone] Kinjal Clements APRN, TRAFFIC ATTENDANT-C Unavailable Shahzad Awan MD Unavailable Balke Wood MD Unavailable [phone] Encounter Details Date Type Department Care Team (Late st Contact Info) Description 01/24/2017 Abstract [facility] [address] [place] [address] Alcides Yoder MD [address] [place] [address] Social History Tobacco Use Types Packs/Day Years Used Date Smoking Tobacco: Smoker, Current Status Unknown Alcohol Use Standard Drinks/Week Comments No 0 (1 standard drink = 0.6 oz pur e alcohol) Comments Unknown Sex and Gender Information Value Date Recorded Sex Assigned at Female 07/27/2024 9:41 AM WAREHOUSE SHIPPING RECEIVING CLERK Legal Sex Female 4:55 PM CDT Gender Identity Not on file Sexual Orientation Not on file Occupation Industry Job Start Date Job End Date Homemaker Not on file Not on file Not on file documented as of this encounter Plan of Treatment Upcoming Encounters Date Type Department Care Team (Late st Contact Info) Description 06/01/2025 1:30 PM WAREHOUSE SHIPPING RECEIVING CLERK Office Visit [facility] el[facility] [address] [place] [address] Kinjal Clements APRN, TRAFFIC ATTENDANT-C [address] [address] documented as of this encounter Visit Diagnoses Not on filedocumented in this encounter Care Teams [place] Clerk Relationship Specialty Start Date End Date Aldair Cash MD [address] [place] [phone] PCP - General INTERNAL MEDICINE 01/22/17 10/29/19 Aldair Cash MD [address] [place] [address] PCP - General INTERNAL MEDICINE 10/30/19 Alcides Yoder MD [address] [place] [address] [place] Information Security Officer CARDIOVASCULAR DISEASE 01/22/17 10/23/23 Marco Urbina MD [address] [place] [address] CARDIOVASCULAR DISEASE 08/26/17 12/04/23 Kinjal Clements APRN, TRAFFIC ATTENDANT-C [address] [address] NURSE PRACTITIONER 10/30/19 Shahzad Awan MD [address] [facility] [address] [address] [place] [address] ORTHOPAEDIC SURGERY 03/21/20 Blake Wood MD [address] [place] [id number] [place] [address] Consulting Physician INTERVENTIONAL CARDIOLOGY 05/25/24 documented as of this encounter
--- OUTSIDE RECORDS SUMMARY | 2025-03-16 11:29 | XMS_ITS | Clinical Summary ---
Author Organization [facility] Address [address] [place] [address] Care Team Providers Care Clinical Account Specialist Name Role Phone Aldair Cash MD Primary Care Provider [phone] Kinjal Clements APRN, NP-C Unavailable [phone] Shahzad Awan MD Unavailable [phone] Blake Wood MD Unavailable [phone] Allergies Active Allergy Reactions Criticality Noted Date Comments Levofloxacin Unknown 01/28/2017 Medications vitamin B-12 1000 MCG tablet Take 1 tablet (1,000 mcg total) by mouth daily. Active vitamin C 1000 MG tablet Take 1 tablet (1,000 mg total) by mouth daily. Active aspirin EC 81 MG EC tablet Take 1 tablet (81 mg total) by mouth daily. Active albuterol sulfate HFA 108 (90 Base) MCG/ACT inhaler Inhale 2 puffs into the lungs every 6 (six) hours as needed for Wheezing. Active vitamin D2, ergocalciferol, 86989 UNITS capsule every 30 (thirty) days. 12/02/2020 Active potassium chloride CR (K-TAB) 10 MEQ Tab CR tablet Take 1 tablet (10 mEq total) by mouth daily. 03/08/2022 Active atorvastatin (LIPITOR) 40 MG tablet Take 1 tablet (40 mg total) by mouth nightly at bedtime. 30 tablet 11 05/20/2023 Active amoxicillin (AMOXIL) 500 MG capsule Prior to dental appt 05/01/2024 Active Active Problems Problem Noted Date Diagnosed Date S/P AVR (aortic valve replacement) 10/28/2019 COPD (chronic obstructive pu lmonary disease) ([facility]) 11/21/2017 LBBB (left bundle branch block) 11/21/2017 Aortic stenosis 10/22/2017 Adult congenital heart disease ([facility]) 018 Bicuspid aortic valve ([facility]) 08/26/2017 Nonrheumatic aortic valve stenosis 06/16/2017 Tobacco abuse 06/16/2017 Anxiety 01/28/2017 Low back pain 01/28/2017 Hyperlipidemia 01/28/2017 Mild coronary artery disease Aneurysm of aorta Family History Medical History Relation Comments Cancer Father Diabetes Mother [place] Mother Stroke Mother CVA Valve Disease Mother Relation Status Comments Father (Age 86) leukemia Mother (Age 69) Social History Tobacco Use Types Packs/Day Years Used Date Smoking Tobacco: Former Cigarettes 2016 Smokeless Tobacco: Never Alcohol Use Standard Drinks/Week Comments No 0 (1 standard drink = 0.6 oz pur e alcohol) Comments Unknown Sex and Gender Information Value Date Recorded Sex Assigned at Female 07/27/2024 9:41 AM SOMMELIER Legal Sex Female 4:55 PM CDT Gender Identity Not on file Sexual Orientation Not on file Occupation Industry Job Start Date Job End Date Homemaker Not on file Not on file Not on file Last Filed Vital Signs Vital Sign Reading Time Taken Comments Blood Pressure 136/88 05/25/2024 1:29 PM SOMMELIER Pulse 84 05/25/2024 1:29 PM SOMMELIER Temperature 36.9 C (98.4 F) 10/30/2019 9:41 AM CDT Respiratory Rate 16 05/25/2024 1:29 PM SOMMELIER Oxygen Saturation 100% 05/25/2024 1:29 PM SOMMELIER Inhaled Oxygen Concentration - - Weight 54 kg (119 lb) 05/25/2024 1:29 PM SOMMELIER Height 162.6 cm (5' 4) 05/25/2024 1:29 PM SOMMELIER Body Mass Index 20.43 05/25/2024 1:29 PM SOMMELIER Plan of Treatment Upcoming Encounters Date Type Department Care Team (Late st Contact Info) Description 06/01/2025 1:30 PM SOMMELIER Office Visit [facility] [address] [place] [address] Kinjal Clements, GENERAL MERCHANDISE MANAGER, COMPOSITION MOLDER-C [address] [facility] [address] [place] [address] Health Maintenance Due Date Last Done Comments ASCVD Statin 1955 Colorectal Cancer Screening Colonoscopy (10 Years) 1955 Hepatitis C 1974 DTaP, Tdap and Td Vaccines ( 1 - Tdap) 12/17/1975 Mammogram Screening 1996 Pneumococcal Vaccine: 50+ Ye ars (2 of 2 - PPSV23) 05/18/2015 03/23/2015 RSV Immunization or 60+ Years (1 - Risk 60-74 years 1-dose series) 2016 Zoster Vaccines (2 of 3) 02/21/2017 12/27/2016 Annual Medicare Wellness Visit 2021 Dexa Scan (General) 2021 ASCVD LDL 07/26/2024 07/26/2023 COVID-19 Vaccine (1 - 2023-2 5 season) 2025 Colorectal Cancer Screening FIT/FOBT (1 Year) Discontinued 11/22/2017 Meningococcal B Vaccine Aged Out No l onger eligible based on patient's age to complete this topic Meningococcal Vaccine Aged Out No liliya jose eligible based on patient's age to complete this topic RSV Immunizations Under 20 Months Aged Out No longer eligible based on patient's age to complete this topic Medical Devices Implanted Type Area Hardwood Floor Sander Device Identifier Shelf Expiration Date Model / Serial / Lot Parks Intuity Elite Aortic Valve Implanted:Qty: 1 on 11/19/2017 by Guerrero Mosher MD at [facility] Valve Implant N/A: Heart 01/18/2019 [id number] 1 / [id number] / [id number] 1 Description:Inventory notifi ed Procedures Procedure Name Priority Date/Time Associated Diagnosis Comments LIPID PANEL Routine 07/26/2023 OCCULT BLOOD, FECES, SCREENING Nurse Collected Priority 11/22/2017 3:00 PM CDT from Last 3 Months or Most Recently Relevant to Health Maintenance Results * LIPID PANEL (07/26/2023) CHOLESTEROL 170 <200 HDL 60 > or=50 TRIGLYCERIDES 138 <150 NON HDL CHOLESTEROL 110 <130 CHOL/HDL RATIO 2.8 <5.0 LDL (CALCULATED) 86 <100 07/26/2023 Aldair Cash MD LABORATORY Final Result * (ABNORMAL) OCCULT BLOOD, FECES, SCREENING (11/22/2017 3:00 PM CDT) OCCULT BLOOD FECAL NEGATIVE NEGATIVE 11/23/2017 10:59 AM CDT [facility] COLLECTION DATE 11/22/17 11/23/2017 10:59 AM CDT [facility] OCCULT BLOOD SPEC 2 NO SAMPLE RECEIVED (A) NEGATIVE 11/23/2017 10:59 AM CDT [facility] OCCULT BLOOD SPEC 3 NO SAMPLE RECEIVED (A) NEGATIVE 11/23/2017 10:59 AM CDT [facility] STOOL SPECIMEN / Unknown 11/22/2017 3:00 PM CDT Guerrero Mosher MD BODY FLUIDS AND STOOLS CHAD FLETCHER Final Result [facility] [address] [place] [address], [id number] from Last 3 Months or Most Recently Relevant to Health Maintenance Insurance MEDICARE [employer]ET[employer] Advance Directives Documents on File Type Date Recorded Patient Building Services Technician Expl anation Advance Directives and Living Will 11/19/2017 9:48 AM POA (AMENDED) 3.29.0 5 Advance Directives and Living Will 08/30/2017 LIVING WILL Advance Directives and Living Will 08/30/2017 SHORT FORM POWER OF TANK MAKER WOOD Advance Directives and Living Will 08/30/2017 SHORT FORM POWER OF TANK MAKER WOOD * Full Code (Latest Code Status on File) Date Activated Date Inactivated Comments 11/19/2017 10:33 AM 11/24/2017 1:07 PM Care Teams Clinical Account Specialist Relationship Specialty Start Date End Date Aldair Cash MD [address] [place] [phone] PCP - General INTERNAL MEDICINE 10/30/19 Kinjal Clements, GENERAL MERCHANDISE MANAGER, COMPOSITION MOLDER-C [address] [facility] [address] [place] [address] NURSE PRACTITIONER 10/30/19 Shahzad Awan MD [address] [address] [place] [address] ORTHOPAEDIC SURGERY 03/21/20 Blake Wood MD [address] [place] [phone] [place] [address] Consulting Physician INTERVENTIONAL CARDIOLOGY 05/25/24
--- OUTSIDE RECORDS SUMMARY | 2025-03-16 11:29 | XMS_ITS | Encounter Summary ---
Author Organization [facility] Address [address] [place] [address] Care Team Providers Care Stud Master/Mistress Name Role Phone Alcides Yoder MD Unavailable [phone] Marco Urbina MD Unavailable Unavailable Aldair Cash MD Primary Care Provider Kinjal Clements APRN CHEMICAL PROCESS EQUIPMENT OPERATOR-C Unavailable [phone] Shahzad Awan MD Unavailable [phone] Blake Wood MD Unavailable [phone] Encounter Details Date Type Department Care Team (Late st Contact Info) Description 07/31/2023 Abstract [facility] [address] [place] [address] Alcides Yoder MD [address] [place] [address] Social History Tobacco Use Types Packs/Day Years Used Date Smoking Tobacco: Former Cigarettes 7 - 2016 Smokeless Tobacco: Never Alcohol Use Standard Drinks/Week Comments No 0 (1 standard drink = 0.6 oz pur e alcohol) Comments Unknown Sex and Gender Information Value Date Recorded Sex Assigned at Female 07/27/2024 9:41 AM MANUFACTURING STOREPERSON Legal Sex Female 4:55 PM CDT Gender Identity Not on file Sexual Orientation Not on file Occupation Industry Job Start Date Job End Date Homemaker Not on file Not on file Not on file documented as of this encounter Plan of Treatment Upcoming Encounters Date Type Department Care Team (Late st Contact Info) Description 06/01/2025 1:30 PM MANUFACTURING STOREPERSON Office Visit [facility] eld [address] [place] [address] Kinjal Clements, VOCATIONAL ED INSTRUCTOR, CHEMICAL PROCESS EQUIPMENT OPERATOR-C [address] [facility] [address] [place] [address] documented as of this encounter Procedures Procedure Name Priority Date/Time Associated Diagnosis Comments CMP (ABSTRACTED LAB) Routine 07/26/2023 LIPID PANEL Routine 07/26/2023 documented in this encounter Results * CMP (ABSTRACTED LAB) (07/26/2023) SODIUM S/P/B 140 135 - 146 POTASSIUM S/P/B 4.1 3.5 - 5.3 CHLORIDE S/P/B 104 98 - 110 CO2 27 20 - 32 BUN 15 7 - 25 CREATININE S/P/B 0.98 0.5 - 1.05 EGFR NON-AFR. AMER. 64 <=90 CALCIUM S/P/B 9.0 8.6 - 10.4 GLUCOSE 90 65 - 99 mg/dL TOTAL PROTEIN S/P/B 6.7 6.1 - 8.1 ALBUMIN S/P/B 4.0 3.6 - 5.1 AST 16 10 - 35 ALT 11 6 - 29 ALKALINE PHOSPHATASE S/P/B 103 37 - 153 BILIRUBIN TOTAL S/P/B 0.3 0.2 - 1.2 07/26/2023 Aldair Cash MD LAB-OUTSIDE/ABSTRACTED Final Result * LIPID PANEL (07/26/2023) CHOLESTEROL 170 <200 HDL 60 > or=50 TRIGLYCERIDES 138 <150 NON HDL CHOLESTEROL 110 <130 CHOL/HDL RATIO 2.8 <5.0 LDL (CALCULATED) 86 <100 07/26/2023 Aldair Cash MD LABORATORY Final Result documented in this encounter Visit Diagnoses Not on filedocumented in this encounter Care Teams Stud Master/Mistress Relationship Specialty Start Date End Date Aldair Cash MD [address] [place] [phone] PCP - General INTERNAL MEDICINE 10/30/19 Alcides Yoder MD [address] [place] [address] [place] Fairing Worker CARDIOVASCULAR DISEASE 01/22/17 10/23/23 Marco Urbina MD [address] [place] [address] CARDIOVASCULAR DISEASE 08/26/17 12/04/23 Kinjal Clements APRN, CHEMICAL PROCESS EQUIPMENT OPERATOR-C [address] [facility] [address] [place] [address] NURSE PRACTITIONER 10/30/19 Shahzad Awan MD [address] [address] [place] [address] ORTHOPAEDIC SURGERY 03/21/20 Blake Wood MD [address] [address] [place] [address] Consulting Physician INTERVENTIONAL CARDIOLOGY 05/25/24 documented as of this encounter
== END 2025-03-16 09:55 | disposition home or self-care (01) ==
PROVIDERS: PCP Internal Medicine; Visit Provider Internal Medicine
DX: M81.0 Age-related osteoporosis without current pathological fracture (principal)
CPT/HCPCS: 96374; J3489